=== PATIENT | male | born 1975 | race Caucasian/White ===

== ENCOUNTER 2020-11-04 18:40 | Inpatient (IN) | payer MEDICAID ==
[2020-11-04 19:37] LABS: Basophils % (A) 0 %; Eosinophils # (A) 0.4 k/uL (0-0.7); Eosinophils % (A) 3 %; HGB 14.4 gm/dL (13.0-17.5); Lymphocytes # (A) 1.8 k/uL (1.0-4.8); Lymphocytes % (A) 14 %; MCH 32.5 pg (25.0-35.0); MCHC 35.2 g/dL (31.0-37.0); MCV 92.3 fL (80.0-100.0); Mean Platelet Volume 7.2; Monocytes # (A) 0.7 k/uL (0-1.0); Monocytes % (A) 5 %; Neutrophils # (A) 9.6 k/uL (1.3-7.7); Neutrophils % (A) 76 %; Platelet Count 241 k/uL (150-450); RBC 4.44 m/uL (4.30-5.90); WBC 12.7 k/uL (3.8-10.6)
[2020-11-04 19:48] LABS: ALT 21 U/L (4-49); AST 25 U/L (17-59); African American GFR (CKD) >90 (>60 ml/min/1.73 sqM); Albumin 3.7 g/dL (3.5-5.0); Alkaline Phosphatase 57 U/L (38-126); Anion Gap 7 mmol/L; Blood Urea Nitrogen 27 mg/dL (9-20); Calcium 9.2 mg/dL (8.4-10.2); Carbon Dioxide 25 mmol/L (22-30); Chloride 104 mmol/L (98-107); Glucose 104 mg/dL (74-99); Non-African American GFR(CKD) >90 (>60 ml/min/1.73 sqM); Potassium 4.2 mmol/L (3.5-5.1); Sodium 136 mmol/L (137-145); Total Protein 5.8 g/dL (6.3-8.2)
[2020-11-04 19:49] LABS: Partial Thromboplastin Time 23.6 sec (22.0-30.0); Prothrombin Time 10.4 sec (9.0-12.0)
[2020-11-04] MEDS ORDERED: IOPAMIDOL CONTRAST (ORAL USE) VIAL PO PRN (19:51)
--- NOTE | 2020-11-04 19:51 | ED ---
GI Bleed HPI - General Chief complaint: GI Bleed Stated complaint: GI bleed Time Seen by Provider: 11/04/20 18:56 Source: patient Mode of arrival: ambulatory Limitations: no limitations - History of Present Illness Initial comments: Fausto is a 45-year-old male who presents to the emergency department today via private vehicle for evaluation of possible GI bleeding. Patient reports that he was feeling more fatigued today than usual. He had 2 bowel movements this evening that appeared to be dark red in color. Patient has no history of GI bleeding. 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 He is on daily aspirin. - Related Data Home Medications Medication Instructions Recorded Confirmed Aspirin EC [Ecotrin Low Dose] 81 mg PO DAILY 11/04/20 11/04/20 Centrum 1 tab PO DAILY 11/04/20 11/04/20 Cholecalciferol [Vitamin D3 (25 25 mcg PO DAILY 11/04/20 11/04/20 Mcg = 1000 Iu)] Allergies Allergy/AdvReac Type Severity Reaction Status Date / Time No Known Allergies Allergy Verified 11/04/20 20:49 Review of Systems ROS Statement: Those systems with pertinent positive or pertinent negative responses have been documented in the HPI. ROS Other: All systems not noted in ROS Statement are negative. Past Medical History Additional Past Medical History / Comment(s): collapsed lung History of Any Multi-Drug Resistant Organisms: None Reported Past Surgical History: No Surgical Hx Reported, Orthopedic Surgery Additional Past Surgical History / Comment(s): Bilateral arthroscopies. Past Psychological History: No Psychological Hx Reported Smoking Status: Former smoker Past Alcohol Use History: Occasional Past Drug Use History: Marijuana General Exam - General Exam Comments Initial Comments: Physical Exam GENERAL: Patient is well-developed and well-nourished. Patient is nontoxic and well-hydrated and is in no distress. HENT: Normocephalic, Atraumatic. EYES: PERRL, EOMI No conjunctival pallor PULMONARY: Unlabored respirations. CARDIOVASCULAR: RRR Warm and well perfused extremities ABDOMEN: Non-distended SKIN: No rashes or bruising No pallor : Deferred NEUROLOGIC: Alert and oriented Normal speech MUSCULOSKELETAL: Moving all extremities with no apparent injury PSYCHIATRIC: No SI/HI Limitations: no limitations Course Vital Signs 11/04/20 18:48 Temperature 97.9 F Pulse Rate 81 Respiratory 18 Rate Blood Pressure 151/77 O2 Sat by Pulse 100 Oximetry Medical Decision Making - Medical Decision Making The patient was seen and evaluated, history is obtained from the patient and at bedside who is an RN Patient with a history of gastric bypass no GI bleeding in the past pertaining today after to melanotic stools at home Patient hemodynamically stable labs are obtained, hemoglobin is 14.4 however patient did have melanotic stool while in the emergency department Protonix was ordered for presumed upper GI bleeding Computed tomography scan no acute findings radiologist did comment on fluid in the rectum consistent with blood however the social right prior to the patient's episode of melena Patient care was discussed with Dr. santos of the [facility] [place] [facility] who accepts the admission with consult to GI - Lab Data Result diagrams: 11/04/20 19:13 11/04/20 19:13 Lab Results 11/04/20 11/04/20 11/04/20 Range/Units 19:13 19:13 19:13 WBC 12.7 H (3.8-10.6) k/uL RBC 4.44 (4.30-5.90) m/uL Hgb 14.4 (13.0-17.5) gm/dL Hct 41.0 (39.0-53.0) % MCV 92.3 (80.0-100.0) fL MCH 32.5 (25.0-35.0) pg MCHC 35.2 (31.0-37.0) g/dL RDW 12.0 (11.5-15.5) % Plt Count 241 (150-450) k/uL MPV 7.2 Neutrophils % 76 % Lymphocytes % 14 % Monocytes % 5 % Eosinophils % 3 % Basophils % 0 % Neutrophils # 9.6 H (1.3-7.7) k/uL Lymphocytes # 1.8 (1.0-4.8) k/uL Monocytes # 0.7 (0-1.0) k/uL Eosinophils # 0.4 (0-0.7) k/uL Basophils # 0.0 (0-0.2) k/uL PT 10.4 (9.0-12.0) sec INR 1.0 (<1.2) APTT 23.6 (22.0-30.0) sec Sodium 136 L (137-145) mmol/L Potassium 4.2 (3.5-5.1) mmol/L Chloride 104 (98-107) mmol/L Carbon Dioxide 25 (22-30) mmol/L Anion Gap 7 mmol/L BUN 27 H (9-20) mg/dL Creatinine 0.77 (0.66-1.25) mg/dL Est GFR (CKD-EPI)AfAm >90 (>60 ml/min/1.73 sqM) Est GFR (CKD-EPI)NonAf >90 (>60 ml/min/1.73 sqM) Glucose 104 H (74-99) mg/dL Calcium 9.2 (8.4-10.2) mg/dL Total Bilirubin 1.0 (0.2-1.3) mg/dL AST 25 (17-59) U/L ALT 21 (4-49) U/L Alkaline Phosphatase 57 (38-126) U/L Total Protein 5.8 L (6.3-8.2) g/dL Albumin 3.7 (3.5-5.0) g/dL Disposition Clinical Impression: Melena Disposition: ADMITTED IP TO THIS HOSP Condition: Stable Is patient prescribed a controlled substance at d/c from ED?: No
[2020-11-04] MEDS ORDERED: PANTOPRAZOLE 40 MG/10 ML VIAL IVP STA (20:37)
[2020-11-04] MEDS ORDERED: SODIUM CHLORIDE 0.9% 1,000 ML IV STA (20:37)
[2020-11-04] MEDS ORDERED: ONDANSETRON 4 MG/2 ML VIAL IVP STA (20:37)
[2020-11-04] MEDS ORDERED: ONDANSETRON 4 MG/2 ML VIAL IVP PRN (20:38)
[2020-11-04] MEDS ORDERED: NALOXONE 0.4 MG/ML 1 ML VIAL IV PRN (20:38)
--- NOTE | 2020-11-04 21:01 | CT ---
EXAMINATION TYPE: CT abdomen pelvis w con DATE OF EXAM: 11/04/2020 COMPARISON: None available. HISTORY: blood in stool CT DLP: 1085.4 mGycm Automated exposure control for dose reduction was used. TECHNIQUE: Helical acquisition of images was performed from the lung bases through the pelvis. CONTRAST: Performed with Oral Contrast and with IV Contrast, patient injected with 100 mL of Isovue 300. FINDINGS: LUNG BASES: No significant abnormality is appreciated. LIVER/GB: No significant abnormality is appreciated. PANCREAS: No significant abnormality is seen. SPLEEN: No significant abnormality is seen. ADRENALS: No significant abnormality is seen. KIDNEYS: No significant abnormality is seen. FREE AIR: No free air is visualized. RETROPERITONEAL ADENOPATHY: None visualized REPRODUCTIVE ORGANS: No significant abnormality is seen URINARY BLADDER: No significant abnormality is seen. PELVIC ADENOPATHY: None visualized. OSSEOUS STRUCTURES: No significant abnormality is seen. BOWEL: Gastric bypass. Mildly hyperattenuating material within the rectum. No bowel obstruction, shelby e air or fluid mildly enlarged. OTHER: None. IMPRESSION: MILDLY HYPERATTENUATING MATERIAL WITHIN THE RECTUM, MOST COMPATIBLE WITH PROVIDED HISTORY OF RECENTLY PASSED MELENA. FINDINGS WERE DISCUSSED WITH DR. POON AND PATIENT IS REPORTED TO BE CLINICALLY STA BLE AND SYMPTOMS APPEARS TO RELATE TO UPPER GI BLEED. ACTIVE BLEEDING IS FELT TO BE LESS LIKELY.
[2020-11-04 22:57] LABS: Basophils % (A) 0 %; Eosinophils # (A) 0.1 k/uL (0-0.7); Eosinophils % (A) 1 %; HCT 34.6 % (39.0-53.0); HGB 12.4 gm/dL (13.0-17.5); Lymphocytes # (A) 1.3 k/uL (1.0-4.8); Lymphocytes % (A) 13 %; MCH 33.1 pg (25.0-35.0); MCHC 35.9 g/dL (31.0-37.0); MCV 92.4 fL (80.0-100.0); Mean Platelet Volume 6.8; Monocytes # (A) 0.5 k/uL (0-1.0); Monocytes % (A) 5 %; Neutrophils # (A) 7.9 k/uL (1.3-7.7); Neutrophils % (A) 80 %; Platelet Count 225 k/uL (150-450); RBC 3.74 m/uL (4.30-5.90); RDW 12.2 % (11.5-15.5); WBC 9.9 k/uL (3.8-10.6)
--- NOTE | 2020-11-04 23:20 | P.HPIM ---
History of Present Illness H&P Date: 11/04/20 The patient is a 45-year-old male with a PMH of Divya-en-Y gastric bypass (4 years ago) who presented to the emergency room for bloody stools. Patient reports that over the past 1-2 days he has felt slightly nauseous and under the weather which he initially attributed to lack of sleep and eating poorly. He notes that earlier today at home he had a loose black tarry stools. He did not think much of it until he had another loose grossly bloody bowel movement just prior to presentation. He reports that while he was passing the bowel movement, he felt nauseous and lightheaded which subsequently resolved shortly after. He had another grossly bloody bowel movement in the emergency room. He reports no prior history of GI bleeding. Reports taking [id number] baby aspirin daily on recommendation of his PCP for primary prevention. He denied abdominal pain, fever, chills, chest pain, shortness of breath, or cough. In the emergency room a CT abdomen and pelvis was remarkable for hyperattenuating material within the rectum compatible with blood suspected to be from upper GI bleeding, believed less likely to be active bleeding. evaluation revealed hemoglobin of 14.4 and subsequently 12.4. Review of Systems Pertinent positives and negatives as discussed in HPI, a complete review of systems was performed and all other systems are negative. Past Medical History Additional Past Medical History / Comment(s): collapsed lung History of Any Multi-Drug Resistant Organisms: None Reported Past Surgical History: No Surgical Hx Reported, Orthopedic Surgery Additional Past Surgical History / Comment(s): Bilateral arthroscopies. Past Psychological History: No Psychological Hx Reported Smoking Status: Former smoker Past Alcohol Use History: Occasional Past Drug Use History: Marijuana Medications and Allergies Home Medications Medication Instructions Recorded Confirmed Type Aspirin EC [Ecotrin Low Dose] 81 mg PO DAILY 11/04/20 11/04/20 History Centrum 1 tab PO DAILY 11/04/20 11/04/20 History Cholecalciferol [Vitamin D3 (25 25 mcg PO DAILY 11/04/20 11/04/20 History Mcg = 1000 Iu)] Allergies Allergy/AdvReac Type Severity Reaction Status Date / Time No Known Allergies Allergy Verified 11/04/20 20:49 Physical Exam Vitals: Vital Signs Temp Pulse Resp BP Pulse Ox 11/04/20 22:00 84 20 135/78 99 11/04/20 18:48 97.9 F 81 18 151/77 100 Intake and Output 11/04/20 11/04/20 11/05/20 14:59 22:59 06:59 Other: Weight 87.543 kg General: non toxic, no distress, appears at stated age, overweight Derm: no unusual rashes/lesions no unusual ecchymoses, warm, dry Head: atraumatic, normocephalic, symmetric Eyes: EOMI, no lid lag, anicteric sclera, pupils equal round reactive to light ENT: Nose and ears atraumatic, no thrush, no pharyngeal erythema Neck: No thyromegaly, no cervical lymphadenopathy, trachea midline, supple Mouth: no lip lesion, mucus membranes moist Cardiovascular: S1S2 reg, no murmur, positive posterior tibial pulse bilateral, no edema, capillary refill less than 2 seconds Lungs: CTA bilateral, no rhonchi, no rales , no accessory muscle use Abdominal: soft, nontender to palpation, no guarding, no appreciable organomegaly, normal bowel sounds Ext: no gross muscle atrophy, muscle strength 5 out of 5 in all 4 extremities grossly, no contractures, Neuro: CN II-XI grossly intact, light touch intact all 4 extremities, finger to nose within normal limits, Psych: Alert, oriented, appropriate affect Results CBC & Chem 7: 11/04/20 22:40 11/04/20 19:13 Labs: Abnormal Lab Results - Last 24 Hours (Table) 11/04/20 11/04/20 11/04/20 Range/Units 19:13 19:13 22:40 WBC 12.7 H (3.8-10.6) k/uL RBC 3.74 L (4.30-5.90) m/uL Hgb 12.4 L (13.0-17.5) gm/dL Hct 34.6 L (39.0-53.0) % Neutrophils # 9.6 H 7.9 H (1.3-7.7) k/uL Sodium 136 L (137-145) mmol/L BUN 27 H (9-20) mg/dL Glucose 104 H (74-99) mg/dL Total Protein 5.8 L (6.3-8.2) g/dL Assessment and Plan Plan: Acute blood loss anemia suspected secondary to upper GI bleeding with history of Divya-en-Y bypass -Continue to monitor CBC every 8 hourly -GI consult -IV fluids -Protonix -Antiemetics -Nothing by mouth -Patient advised to discontinue his aspirin use and discussed with his PCP following discharge Elevated BUN -Likely secondary to GI bleeding -Continue to monitor DVT prophylaxis -IPCDs The patient is admitted with an anticipated less than 2 midnight stay for evaluation of GIB CODE STATUS: Full Code Discussed with: patient Anticipated discharge date: in am Anticipated discharge place: home A total of 35 minutes was spent on the care of this complex patient more than 50% of the time was spent in counseling and care coordination.
[2020-11-05 04:23] LABS: Glucose,Whole Blood 104 mg/dL (75-99)
--- NOTE | 2020-11-05 07:26 | XR ---
EXAMINATION TYPE: XR chest 1V DATE OF EXAM: 11/05/2020 COMPARISON: NONE HISTORY: Chest pain TECHNIQUE: Single frontal view of the chest is obtained. FINDINGS: There is no focal air space opacity, pleural effusion, or pneumothorax seen. The cardiac silhouette size is within normal limits. The osseous structures are intact. IMPRESSION: 1. No acute process.
--- NOTE | 2020-11-05 07:31 | P.CNPUL ---
History of Present Illness Consult date: 11/05/20 Chief complaint: GIB History of present illness: Very pleasant 45-year-old male patient was coming in for a GI bleeding. He is healthy. He has undergone a gastric Divya-en-Y bypass surgery in [place] 2013 and he was doing well since then and he has lost more than 150 pounds. The patient does not any peptic ulcer disease. No gastric ulcer. No history of any alcoholism. No history of any liver disease. No intake of any nonsteroidal anti-inflammatory medications. No previous history of GI bleed. Yesterday, he started up by having a single episode of melanotic stool and following that he has had 3 bouts of hematochezia the last 2 bouts occurred in the emergency department. I was told that the amount of blood was massive and the patient was becoming pale and diaphoretic and dizzy and lightheaded. At that point, the patient was resuscitated with IV fluids and he was given also unit of packed RBC for a hemoglobin of 12.4 and his hemoglobin dropped from 14.4. coagulation profile was normal. Platelet count was normal. He was not taking any form of anticoagulants. No hematemesis. No abdominal pain. Chest x-ray was normal. CAT scan of the abdomen was normal. He is currently in the intensive care unit. He is hemodynamically stable. No significant tachycardia. He is receiving normal saline at the rate of 75 mL's an hour. He is also nothing by mouth for now to which she is not happy. Review of Systems Constitutional: Reports fatigue, Reports weakness, Reports weight loss Eyes: denies as per HPI, denies blurred vision, denies bulging eye, denies decreased vision, denies diplopia, denies discharge, denies dry eye, denies irritation, denies itching, denies pain, denies photophobia, denies loss of peripheral vision, denies loss of vision, denies tunnel vision/blind spots Ears: deny: decreased hearing, ear discharge, earache, tinnitus Ears, nose, mouth and throat: Reports as per HPI Breasts: absent: as per HPI, gynecomastia Cardiovascular: Reports as per HPI Respiratory: Reports as per HPI Gastrointestinal: Reports as per HPI, Reports hematochezia, Reports melena Genitourinary: Reports as per HPI Musculoskeletal: Reports as per HPI Musculoskeletal: absent: ankle pain, ankle stiffness, ankle swelling, as per HPI, elbow pain, elbow stiffness, elbow swelling, foot pain, foot stiffness, foot swelling, hand pain, hand stiffness, hand swelling, hip pain, hip stiffness, hip swelling, knee pain, knee stiffness, knee swelling, shoulder pain, shoulder stiffness, shoulder swelling, wrist pain, wrist stiffness, wrist swelling Integumentary: Reports as per HPI Neurological: Reports as per HPI Psychiatric: Reports as per HPI Endocrine: Reports as per HPI Hematologic/Lymphatic: Reports as per HPI Allergic/Immunologic: Reports as per HPI Past Medical History Past Medical History: Osteoarthritis (OA) Additional Past Medical History / Comment(s): collapsed (L) lung History of Any Multi-Drug Resistant Organisms: None Reported Past Surgical History: Orthopedic Surgery Additional Past Surgical History / Comment(s): Bilateral Knee arthroscopies x3. Lasix eye surgery (2013), Divya-en-Y gastric bypass 06/25/2016 Past Anesthesia/Blood Transfusion Reactions: No Reported Reaction Past Psychological History: No Psychological Hx Reported Smoking Status: Former smoker Past Alcohol Use History: Occasional Past Drug Use History: Marijuana - Past Family History Mother Family Medical History: Hypertension, Thyroid Disorder Father Family Medical History: Myocardial Infarction ([place]) Additional Family Medical History / Comment(s): CABG x 4 Medications and Allergies Home Medications Medication Instructions Recorded Confirmed Type Aspirin EC [Ecotrin Low Dose] 81 mg PO DAILY 11/04/20 11/04/20 History Centrum 1 tab PO DAILY 11/04/20 11/04/20 History Cholecalciferol [Vitamin D3 (25 25 mcg PO DAILY 11/04/20 11/04/20 History Mcg = 1000 Iu)] Allergies Allergy/AdvReac Type Severity Reaction Status Date / Time No Known Allergies Allergy Verified 11/04/20 20:49 Physical Exam Vitals: Vital Signs Temp Pulse Resp BP Pulse Ox 11/05/20 07:00 75 17 125/77 98 11/05/20 06:30 69 11 L 126/80 97 11/05/20 06:03 98.1 F 75 12 126/80 98 11/05/20 06:00 75 18 126/82 99 11/05/20 05:53 98.2 F 76 12 126/82 98 11/05/20 05:30 72 11 L 124/82 98 11/05/20 05:00 69 10 L 123/82 99 11/05/20 04:52 98 11/05/20 04:50 71 17 123/82 98 11/05/20 04:30 98.1 F 77 13 126/79 99 11/05/20 03:32 98.1 F 11/05/20 03:30 58 L 16 113/68 100 11/05/20 03:29 65 22 130/79 91 L 11/04/20 22:00 84 20 135/78 99 11/04/20 18:48 97.9 F 81 18 151/77 100 Intake and Output 11/04/20 11/05/20 11/05/20 22:59 06:59 14:59 Intake Total 434 359 Balance 434 359 Intake: IV 150 359 0.9 NaCl- 150 75 PRBC's 284 Blood Product 284 Rc Pheresis 2 As3 Unit 284 [id number] Other: Weight 87.543 kg 90.3 kg The patient appeared well nourished and normally developed. Vital signs as doc umented. Head exam is unremarkable. No scleral icterus or corneal arcus noted. Neck is without jugular venous distension, thyromegaly, or carotid bruits. Carotid upstrokes are brisk bilaterally. Lungs are clear to auscultation and percussion. Cardiac exam reveals the PMI to be normally sized and situated. Rhythm is regular. First and second heart sounds normal. No murmurs, rubs or gallops. Abdominal exam reveals normal bowel sounds, no masses, no organomegaly and no aortic enlargement. Extremities are nonedematous and both femoral and pedal pulses are normal.Examination of the skin revealed no evidence of significant rashes, suspicious appearing nevi or other concerning lesions.Neurologically, the patient is awake and alert and the patient does not have any focal neurological deficit. Cranial nerves are essentially intact. Results - Laboratory Findings CBC and BMP: 11/04/20 22:40 11/04/20 19:13 PT/INR, D-dimer PT 10.4 sec (9.0-12.0) 11/04/20 19:13 INR 1.0 (<1.2) 11/04/20 19:13 Abnormal lab findings: Abnormal Labs 11/04/20 11/04/20 11/04/20 19:13 19:13 22:40 WBC 12.7 H RBC 3.74 L Hgb 12.4 L Hct 34.6 L Neutrophils # 9.6 H 7.9 H Sodium 136 L BUN 27 H Glucose 104 H POC Glucose (mg/dL) Total Protein 5.8 L Crossmatch 11/05/20 11/05/20 03:56 04:22 WBC RBC Hgb Hct Neutrophils # Sodium BUN Glucose POC Glucose (mg/dL) 104 H Total Protein Crossmatch See Detail - Diagnostic Findings Chest x-ray: image reviewed Assessment and Plan Plan: 1 acute GI bleeding likely of an upper GI source and the patient was undergone a Divya-en-Y gastric bypass surgery. The patient had significant amount of bleeding clinically. Hemoglobin dropped down to 12.4. He has already given a unit of packed RBC and is was resuscitated IV fluids. Hemodynamically stable at this point. He is nothing by mouth. He is on IV Protonix. 2 history of bariatric surgery with Divya-en-Y gastric bypass, current BMI is 27 Plan Continue IV Protonix Continue IV fluids Watch for any further signs of GI bleeding Keep the patient by mouth for now The patient for EGD and possible colonoscopy Monitor hemoglobin every 6 hours We'll continue to follow.
[2020-11-05 08:37] LABS: Basophils % (A) 0 %; Eosinophils # (A) 0.1 k/uL (0-0.7); Eosinophils % (A) 1 %; HCT 34.3 % (39.0-53.0); HGB 11.6 gm/dL (13.0-17.5); Lymphocytes # (A) 1.9 k/uL (1.0-4.8); Lymphocytes % (A) 22 %; MCH 31.5 pg (25.0-35.0); MCV 92.6 fL (80.0-100.0); Mean Platelet Volume 6.6; Monocytes # (A) 0.5 k/uL (0-1.0); Monocytes % (A) 6 %; Neutrophils # (A) 5.9 k/uL (1.3-7.7); Neutrophils % (A) 69 %; Platelet Count 216 k/uL (150-450); RDW 12.7 % (11.5-15.5); WBC 8.5 k/uL (3.8-10.6)
[2020-11-05 08:56] LABS: Basophils # (A) 0.04 X 10*3/uL (0.00-0.10); Basophils % (A) 0.5 %; Eosinophils # (A) 0.12 X 10*3/uL (0.04-0.35); Eosinophils % (A) 1.5 %; HCT 30.7 % (39.6-50.0); HGB 10.4 g/dL (13.0-17.0); Lymphocytes # (A) 1.55 X 10*3/uL (0.90-5.00); Lymphocytes % (A) 19.2 %; MCH 31.8 pg (27.0-32.0); MCHC 33.9 g/dL (32.0-37.0); MCV 93.9 fL (80.0-97.0); Monocytes # (A) 0.75 X 10*3/uL (0.20-1.00); Monocytes % (A) 9.3 %; Neutrophils % (A) 69.3 %; Platelet Count 197 X 10*3/uL (140-440); RBC 3.27 X 10*6/uL (4.40-5.60); RDW 12.1 % (11.5-14.5); WBC 8.08 X 10*3/uL (4.50-10.00)
[2020-11-05] MEDS ORDERED: PANTOPRAZOLE 40 MG/10 ML VIAL IV SCH (09:00)
[2020-11-05 09:17] LABS: African American GFR (CKD) 123.3 (60.0-200.0); Albumin/Globulin Ratio 2.5 (1.60-3.17); Anion Gap 4.6 mmol/L (4.00-12.00); BUN/Creat Ratio 26.25 Ratio (12.00-20.00); Calcium 8.3 mg/dL (8.7-10.3); Carbon Dioxide 25.4 mmol/L (21.6-31.8); Globulin 1.2 g/dL (1.6-3.3); Non-African American GFR(CKD) 106.4 (60.0-200.0); Potassium 3.8 mmol/L (3.5-5.5); Total Bilirubin 0.8 mg/dL (0.2-1.2); Total Protein 4.2 g/dL (6.2-8.2)
[2020-11-05 09:44] LABS: Appearance,Urine Clear (Clear); Bilirubin,Urine Negative (Negative); Blood,Urine Negative (Negative); Color,Urine Yellow; Glucose,Urine (UA) Negative (Negative); Ketones,Urine 3+ (Negative); Leukocyte Esterase,Urine Negative (Negative); Nitrite,Urine Negative (Negative); Protein,Urine Negative (Negative); Specific Gravity,Urine 1.026 (1.001-1.035); Urobilinogen,Urine <2.0 mg/dL (<2.0)
--- NOTE | 2020-11-05 10:29 | P.PN ---
Subjective Progress Note Date: 11/05/20 Patient is awake and alert. He had another episode of GI bleed this morning with another maroon bowel movement. He received 1 units of packed RBC for hemoglobin of 10.4 as ordered by GI. Patient denies any abdominal pain. He is hemodynamically stable. No nausea or vomiting. Patient denies any heavy alcohol use and reports drinking 1 drink per day. Patient denies any NSAIDs use and he is aware that he is not supposed to use it secondary to his Divya-en-Y surgery. Objective - Vital Signs Vital signs: Vital Signs Temp 97.9 F 11/05/20 08:00 Pulse 88 11/05/20 10:00 Resp 15 11/05/20 10:00 BP 124/91 11/05/20 10:00 Pulse Ox 100 11/05/20 10:00 Intake & Output 11/04/20 11/05/20 11/05/20 18:59 06:59 18:59 Intake Total 434 584 Output Total 500 Balance 434 84 Weight 87.543 kg 90.3 kg Intake: IV 150 584 0.9 NaCl- 150 300 PRBC's 284 Blood Product 284 Rc Pheresis 2 As3 Unit 284 [id number] Output: Urine 500 - Exam General: The patient is awake and alert, in no distress Eye: there is normal conjunctiva bilaterally. Neck: The neck is supple, there is no JVD. Cardiovascular: Normal S1-S2, no S3-S4, no murmurs. Respiratory: Lungs clear to auscultation bilaterally Gastrointestinal: Abdomen is soft, nontender Musculoskeletal: There is no pedal edema. Neurological:. Speech is normal. Skin: Skin is warm and dry - Labs CBC & Chem 7: 11/05/20 08:08 11/05/20 05:23 Labs: Abnormal Lab Results - Last 24 Hours (Table) 11/04/20 11/04/20 11/04/20 Range/Units 19:13 19:13 22:40 WBC 12.7 H (3.8-10.6) k/uL RBC 3.74 L (4.30-5.90) m/uL Hgb 12.4 L (13.0-17.5) gm/dL Hct 34.6 L (39.0-53.0) % Neutrophils # 9.6 H 7.9 H (1.3-7.7) k/uL Sodium 136 L (137-145) mmol/L BUN 27 H (9-20) mg/dL BUN/Creatinine Ratio (12.00-20.00) Ratio Glucose 104 H (74-99) mg/dL POC Glucose (mg/dL) (75-99) mg/dL Calcium (8.7-10.3) mg/dL Total Protein 5.8 L (6.3-8.2) g/dL Albumin (3.80-4.90) g/dL Globulin (1.6-3.3) g/dL Urine Ketones (Negative) Crossmatch 11/05/20 11/05/20 11/05/20 Range/Units 03:56 04:22 05:23 WBC (3.8-10.6) k/uL RBC 3.27 L (4.30-5.90) m/uL Hgb 10.4 L (13.0-17.5) gm/dL Hct 30.7 L (39.0-53.0) % Neutrophils # (1.3-7.7) k/uL Sodium (137-145) mmol/L BUN (9-20) mg/dL BUN/Creatinine Ratio (12.00-20.00) Ratio Glucose (74-99) mg/dL POC Glucose (mg/dL) 104 H (75-99) mg/dL Calcium (8.7-10.3) mg/dL Total Protein (6.3-8.2) g/dL Albumin (3.80-4.90) g/dL Globulin (1.6-3.3) g/dL Urine Ketones (Negative) Crossmatch See Detail 11/05/20 11/05/20 11/05/20 Range/Units 05:23 08:08 09:21 WBC (3.8-10.6) k/uL RBC 3.70 L (4.30-5.90) m/uL Hgb 11.6 L (13.0-17.5) gm/dL Hct 34.3 L (39.0-53.0) % Neutrophils # (1.3-7.7) k/uL Sodium (137-145) mmol/L BUN (9-20) mg/dL BUN/Creatinine Ratio 26.25 H (12.00-20.00) Ratio Glucose (74-99) mg/dL POC Glucose (mg/dL) (75-99) mg/dL Calcium 8.3 L (8.7-10.3) mg/dL Total Protein 4.2 L (6.3-8.2) g/dL Albumin 3.00 L (3.80-4.90) g/dL Globulin 1.2 L (1.6-3.3) g/dL Urine Ketones 3+ H (Negative) Crossmatch Assessment and Plan Assessment: This is a 45-year-old male with no significant past medical history other than a Divya-en-Y bypass surgery done in [facility] in 2013 that presented to the emergency room with rectal bleed and maroon bowel movement. Patient was evaluated in the ER and currently admitted to the hospital for further management of his medical problems noted below. 1. GI bleed, most likely upper. Computed tomography scan of the abdomen and pelvis showed no acute findings. Started on IV Protonix 40 mg daily which I would increase to twice a day. GI consulted for further management and possible EGD. 2. Acute blood loss anemia, status post 1 unit of PRBC transfusion for hemoglobin of 10.4 as ordered by GI. Patient is hemodynamically stable. We will continue to monitor CBC closely. Patient is hemodynamically stable. 3. History of Divya-en-Y bypass surgery in [facility] in 2013 4. DVT prophylaxis with SCDs Today, I reviewed his medication list and lab work results. Continue IV fluid hydration with normal saline at 75 mL per hour. Continue nothing by mouth for now. Transfuse as needed for hemoglobin less than 8.
[2020-11-05] MEDS: PANTOPRAZOLE 40 MG/10 ML VIAL IV SCH ×2 (11:06→20:30)
--- NOTE | 2020-11-05 11:44 | P.CONS ---
History of Present Illness - Reason for Consult Consult date: 11/05/20 GI bleed Requesting physician: Dian Rodriguez - Chief Complaint GI bleed - History of Present Illness 45-year-old pleasant male with a previous history of Divya-en-Y gastric bypass presenting to the hospital for evaluation of GI bleed. The patient previously had a Divya-en-Y gastric bypass in 2016. He presented to the hospital after having an episode of dark melanotic stool. The patient had associated dizziness and lightheadedness. He presented to the emergency department for further evaluation where he was found to have 2 bowel movements described as bright red blood in color. He denies any abdominal pain. No history of peptic ulcer disease, NSAID use, chronic liver disease or excessive alcohol use. No prior EGD or colonoscopy. Computed tomography scan of the abdomen was performed in evaluation and essentially negative except for some finding of material felt to be old blood in the rectum. Laboratory evaluation significant for WBC 8.5, hemoglobin 11.6 after transfusion 1 unit of PRBCs, platelet count 216,000, total bilirubin 0.8, alkaline phosphatase 46, AST 15 and ALT 17 with a BUN of 27. Currently the patient is receiving treatment in the intensive care. It. No other acute complaints at this time. Review of Systems REVIEW OF SYSTEMS: CONSTITUTIONAL: Denies any fevers, chills, weight change or fatigue, he did have some lightheadedness and dizziness earlier. CARDIOVASCULAR: Denies any chest pain, palpitations high or low blood pressures RESPIRATORY: Denies any shortness of breath, hemoptysis or cough. GENITOURINARY: No dysuria or hematuria. MUSCULOSKELETAL: No weakness reported. SKIN: Denies any new rashes or lesions, jaundice or pallor. PSYCHIATRIC: Denies any depression or anxiety. NEUROLOGY: Denies headache, denies any new focal deficits. EARS/NOSE/THROAT: No recent hearing change, congestion, nasal discharge or sore throat. EYES: No pain in eyes, discharge or change in vision. GASTROINTESTINAL: As per HPI. Past Medical History Past Medical History: Osteoarthritis (OA) Additional Past Medical History / Comment(s): collapsed (L) lung History of Any Multi-Drug Resistant Organisms: None Reported Past Surgical History: Orthopedic Surgery Additional Past Surgical History / Comment(s): Bilateral Knee arthroscopies x3. Lasix eye surgery (2013), Divya-en-Y gastric bypass 06/25/2016 Past Anesthesia/Blood Transfusion Reactions: No Reported Reaction Past Psychological History: No Psychological Hx Reported Smoking Status: Former smoker Past Alcohol Use History: Occasional Past Drug Use History: Marijuana - Past Family History Mother Family Medical History: Hypertension, Thyroid Disorder Father Family Medical History: Myocardial Infarction (MS) Additional Family Medical History / Comment(s): CABG x 4 Medications and Allergies Home Medications Medication Instructions Recorded Confirmed Type Aspirin EC [Ecotrin Low Dose] 81 mg PO DAILY 11/04/20 11/04/20 History Centrum 1 tab PO DAILY 11/04/20 11/04/20 History Cholecalciferol [Vitamin D3 (25 25 mcg PO DAILY 11/04/20 11/04/20 History Mcg = 1000 Iu)] Allergies Allergy/AdvReac Type Severity Reaction Status Date / Time No Known Allergies Allergy Verified 11/04/20 20:49 Physical Exam Vitals: Vital Signs Temp Pulse Resp BP Pulse Ox 11/05/20 10:00 88 15 124/91 100 11/05/20 09:30 87 26 H 137/85 99 11/05/20 09:00 111 H 28 H 136/86 98 11/05/20 08:30 69 20 135/74 98 11/05/20 08:00 97.9 F 75 11 L 128/75 98 11/05/20 07:30 71 16 119/68 98 11/05/20 07:00 75 17 125/77 98 11/05/20 06:50 97.9 F 75 17 125/77 11/05/20 06:30 69 11 L 126/80 97 11/05/20 06:03 98.1 F 75 12 126/80 98 11/05/20 06:00 75 18 126/82 99 11/05/20 05:53 98.2 F 76 12 126/82 98 11/05/20 05:30 72 11 L 124/82 98 11/05/20 05:00 69 10 L 123/82 99 11/05/20 04:52 98 11/05/20 04:50 71 17 123/82 98 11/05/20 04:30 98.1 F 77 13 126/79 99 11/05/20 03:32 98.1 F 11/05/20 03:30 58 L 16 113/68 100 11/05/20 03:29 65 22 130/79 91 L 03/27/21 22:00 84 20 135/78 99 11/04/20 18:48 97.9 F 81 18 151/77 100 Intake and Output 11/04/20 11/05/20 11/05/20 22:59 06:59 14:59 Intake Total 434 584 Output Total 500 Balance 434 84 Intake: IV 150 584 0.9 NaCl- 150 300 PRBC's 284 Blood Product 284 Rc Pheresis 2 As3 Unit 284 [id number] Output: Urine 500 Other: Weight 87.543 kg 90.3 kg On physical examination, patient appears comfortable in no apparent distress. HEAD: Normocephalic, atraumatic. EYES: No scleral icterus. No conjunctival injection. MOUTH: No lesions, tongue midline. NECK: Trachea midline, no gross abnormalities. CHEST: Clear to auscultation with no wheezing or rhonchi appreciated. HEART: Regular rate and rhythm. ABDOMEN: Soft, nontender. Bowel sounds are positive. No organomegaly. No guarding or rigidity. EXTREMITIES: No pedal edema. SKIN: No rashes, no jaundice. NEUROLOGIC: Alert and oriented x3. No focal deficits. Results CBC & Chem 7: 11/05/20 08:08 11/05/20 05:23 Labs: Abnormal Lab Results - Last 24 Hours (Table) 11/04/20 11/04/20 11/04/20 Range/Units 19:13 19:13 22:40 WBC 12.7 H (3.8-10.6) k/uL RBC 3.74 L (4.30-5.90) m/uL Hgb 12.4 L (13.0-17.5) gm/dL Hct 34.6 L (39.0-53.0) % Neutrophils # 9.6 H 7.9 H (1.3-7.7) k/uL Sodium 136 L (137-145) mmol/L BUN 27 H (9-20) mg/dL BUN/Creatinine Ratio (12.00-20.00) Ratio Glucose 104 H (74-99) mg/dL POC Glucose (mg/dL) (75-99) mg/dL Calcium (8.7-10.3) mg/dL Total Protein 5.8 L (6.3-8.2) g/dL Albumin (3.80-4.90) g/dL Globulin (1.6-3.3) g/dL Urine Ketones (Negative) Crossmatch 11/05/20 11/05/20 11/05/20 Range/Units 03:56 04:22 05:23 WBC (3.8-10.6) k/uL RBC 3.27 L (4.30-5.90) m/uL Hgb 10.4 L (13.0-17.5) gm/dL Hct 30.7 L (39.0-53.0) % Neutrophils # (1.3-7.7) k/uL Sodium (137-145) mmol/L BUN (9-20) mg/dL BUN/Creatinine Ratio (12.00-20.00) Ratio Glucose (74-99) mg/dL POC Glucose (mg/dL) 104 H (75-99) mg/dL Calcium (8.7-10.3) mg/dL Total Protein (6.3-8.2) g/dL Albumin (3.80-4.90) g/dL Globulin (1.6-3.3) g/dL Urine Ketones (Negative) Crossmatch See Detail 11/05/20 11/05/20 11/05/20 Range/Units 05:23 08:08 09:21 WBC (3.8-10.6) k/uL RBC 3.70 L (4.30-5.90) m/uL Hgb 11.6 L (13.0-17.5) gm/dL Hct 34.3 L (39.0-53.0) % Neutrophils # (1.3-7.7) k/uL Sodium (137-145) mmol/L BUN (9-20) mg/dL BUN/Creatinine Ratio 26.25 H (12.00-20.00) Ratio Glucose (74-99) mg/dL POC Glucose (mg/dL) (75-99) mg/dL Calcium 8.3 L (8.7-10.3) mg/dL Total Protein 4.2 L (6.3-8.2) g/dL Albumin 3.00 L (3.80-4.90) g/dL Globulin 1.2 L (1.6-3.3) g/dL Urine Ketones 3+ H (Negative) Crossmatch CT scan - abdomen: report reviewed (Computed tomography scan performed in evaluation of symptoms of GI bleed essentially negative except for some material in the rectum felt to be old blood.) Assessment and Plan (1) GI bleed Narrative/Plan: 45-year-old male with a prior medical history significant for a Divya-en-Y gastric bypass in 2016 who presented for melanotic stool. To further bowel movements in the emergency department and felt to be more bright red blood in color. Computed tomography scan of the abdomen essentially negative. No prior history of peptic ulcer disease, no prior EGD or colonoscopy. Patient denies any abdominal pain at this time. Unclear etiology, patient does have mild elevation in BUN of 27 may be related to upper GI bleed with differential including peptic ulcer disease, gastritis, esophagitis, however given the description of bright red blood in the emergency department cannot rule out lower GI bleed. Current Visit: Yes Status: Acute Code(s): K92.2 - GASTROINTESTINAL HEMORRHAGE, UNSPECIFIED SNOMED Code(s): 80896184 (2) Anemia associated with acute blood loss Current Visit: Yes Status: Acute Code(s): D62 - ACUTE POSTHEMORRHAGIC ANEMIA SNOMED Code(s): 999536265 (3) Melena Current Visit: Yes Status: Acute Code(s): K92.1 - MELENA SNOMED Code(s): 6394533 Plan: Supportive care Clear liquid diet Nothing by mouth after midnight Continue to monitor hemoglobin and hematocrit and transfuse as needed Continue Protonix therapy Bowel prep ordered Extensive discussion with the patient regarding possible risks, benefits and complications from EGD and colonoscopy with all of his questions answered to his satisfaction, we'll plan for EGD and colonoscopy tomorrow for further evaluation Thank you for allowing us to participate in the care of the patient we will continue to follow
[2020-11-05 16:12] LABS: HGB 11.4 gm/dL (13.0-17.5); MCH 33.9 pg (25.0-35.0); MCHC 36.7 g/dL (31.0-37.0); MCV 92.3 fL (80.0-100.0); Mean Platelet Volume 6.7; Platelet Count 214 k/uL (150-450); RBC 3.36 m/uL (4.30-5.90); RDW 12.3 % (11.5-15.5); WBC 8.9 k/uL (3.8-10.6)
[2020-11-05] MEDS ORDERED: PEG 3350-NA SULF,BICARB,CL/KCL 4,000 ML BOTTLE PO ONE (17:00)
[2020-11-05] MEDS ORDERED: bisacodyL 5 MG TABLET.DR PO ONE (18:00)
[2020-11-05 21:32] LABS: HCT 31.2 % (39.0-53.0); HGB 11.2 gm/dL (13.0-17.5); MCH 33.6 pg (25.0-35.0); MCV 93.4 fL (80.0-100.0); Mean Platelet Volume 6.8; Platelet Count 218 k/uL (150-450); RBC 3.34 m/uL (4.30-5.90); RDW 12.4 % (11.5-15.5); WBC 9.1 k/uL (3.8-10.6)
[2020-11-06 04:35] LABS: Basophils % (A) 1 %; Eosinophils # (A) 0.2 k/uL (0-0.7); Eosinophils % (A) 4 %; HCT 29.1 % (39.0-53.0); HGB 10.4 gm/dL (13.0-17.5); Lymphocytes # (A) 1.8 k/uL (1.0-4.8); Lymphocytes % (A) 29 %; MCH 33.2 pg (25.0-35.0); MCHC 35.9 g/dL (31.0-37.0); MCV 92.5 fL (80.0-100.0); Mean Platelet Volume 6.6; Monocytes # (A) 0.4 k/uL (0-1.0); Monocytes % (A) 6 %; Neutrophils # (A) 3.5 k/uL (1.3-7.7); Neutrophils % (A) 57 %; Platelet Count 185 k/uL (150-450); RBC 3.14 m/uL (4.30-5.90); RDW 12.3 % (11.5-15.5); WBC 6.2 k/uL (3.8-10.6)
[2020-11-06 05:31] LABS: African American GFR (CKD) >90 (>60 ml/min/1.73 sqM); Anion Gap 3 mmol/L; Blood Urea Nitrogen 7 mg/dL (9-20); Calcium 8.4 mg/dL (8.4-10.2); Carbon Dioxide 26 mmol/L (22-30); Chloride 106 mmol/L (98-107); Glucose 82 mg/dL (74-99); Non-African American GFR(CKD) >90 (>60 ml/min/1.73 sqM); Potassium 3.6 mmol/L (3.5-5.1); Sodium 135 mmol/L (137-145)
[2020-11-06] MEDS ORDERED: ACETAMINOPHEN TAB 500 MG TAB PO PRN (06:04)
--- NOTE | 2020-11-06 10:37 | P.PN ---
Subjective Progress Note Date: 11/06/20 Principal diagnosis: Acute GI bleeding likely upper GI source. Very pleasant 45-year-old male patient was coming in for a GI bleeding. He is healthy. He has undergone a gastric Divya-en-Y bypass surgery in [place] 2013 and he was doing well since then and he has lost more than 150 pounds. The patient does not any peptic ulcer disease. No gastric ulcer. No history of any al coholism. No history of any liver disease. No intake of any nonsteroidal anti- inflammatory medications. No previous history of GI bleed. Yesterday, he started up by having a single episode of melanotic stool and following that he has had 3 bouts of hematochezia the last 2 bouts occurred in the emergency department. I was told that the amount of blood was massive and the patient was becoming pale and diaphoretic and dizzy and lightheaded. At that point, the patient was resuscitated with IV fluids and he was given also unit of packed RBC for a hemoglobin of 12.4 and his hemoglobin dropped from 14.4. coagulation profile was normal. Platelet count was normal. He was not taking any form of anticoagulants. No hematemesis. No abdominal pain. Chest x-ray was normal. CAT scan of the abdomen was normal. He is currently in the intensive care unit. He is hemodynamically stable. No significant tachycardia. He is receiving normal saline at the rate of 75 mL's an hour. He is also nothing by mouth for now to which she is not happy. Patient was reevaluated today on 11/06/2020, remains in the ICU, scheduled to undergo EGD and colonoscopy today. Hemoglobin today is 10.4, it was 11.2 yesterday. Patient received 1 unit of packed RBCs since admission. No active bleeding overnight. Patient is hemodynamically stable. And in no distress, on room air. Objective - Vital Signs Vital signs: Vital Signs Temp 98.1 F 11/06/20 08:00 Pulse 71 11/06/20 10:00 Resp 18 11/06/20 10:00 BP 141/88 11/06/20 10:00 Pulse Ox 96 11/06/20 10:00 Intake & Output 11/05/20 11/06/20 11/06/20 18:59 06:59 18:59 Intake Total 1184 1432 200 Output Total 900 452 500 Balance 284 980 -300 Weight 98.2 kg Intake: IV 1184 1432 200 0.9 NaCl- 900 1432 200 PRBC's 284 Output: Urine 900 450 500 Stool 2 Other: Voiding Method Urinal Urinal Urinal # Voids 3 1 # Bowel Movements 2 1 - Exam Physical Exam revealed a 45-year-old white male in no distress, extremely pleasant. Head: Atraumatic normocephalic. HEENT:[Neck is supple.] [No neck masses.] [No thyromegaly.] [No JVD.] Chest: [Clear throughout, no crackles, no rhonchi, no wheezes.] Cardiac Exam: [Normal S1 and S2, no S3 gallop, no murmur.] Abdomen: [Soft, nontender, no megaly, no rebound, no guarding, normal bowel sounds.] Extremities: [No clubbing, no edema, no cyanosis.] Neurological Exam: [No focal neurologic deficit.] Alert and oriented 3. Psychiatric: Normal mood affect and normal mental status examination. Skin: No rashes. - Labs CBC & Chem 7: 11/06/20 03:55 11/06/20 03:55 Labs: Abnormal Lab Results - Last 24 Hours (Table) 11/05/20 11/05/20 11/06/20 Range/Units 15:52 21:01 03:55 RBC 3.36 L 3.34 L 3.14 L (4.30-5.90) m/uL Hgb 11.4 L 11.2 L 10.4 L (13.0-17.5) gm/dL Hct 31.0 L 31.2 L 29.1 L (39.0-53.0) % Sodium (137-145) mmol/L BUN (9-20) mg/dL 11/06/20 Range/Units 03:55 RBC (4.30-5.90) m/uL Hgb (13.0-17.5) gm/dL Hct (39.0-53.0) % Sodium 135 L (137-145) mmol/L BUN 7 L (9-20) mg/dL Assessment and Plan Assessment: Impression: Acute GI bleeding most likely upper GI source considering the patient had previous Divya-en-Y gastric bypass surgery in [facility]. History of bariatric surgery/Divya-en-Y gastric bypass surgery. Recommendation: Continue Protonix. Continue IV fluids. Continue to monitor hemoglobin. And monitor for any signs of bleeding. Keep nothing by mouth for now. EGD and colonoscopy scheduled to be done today. We'll continue to follow. Based on the endoscopy findings, we'll decide whether the patient stays in the ICU or transfer to a regular medical floor today Time with Patient: Less than 30
[2020-11-06] MEDS: PANTOPRAZOLE 40 MG/10 ML VIAL IV SCH ×2 (10:46→21:02)
[2020-11-06] MEDS ORDERED: MIDAZOLAM 2 MG/2 ML VIAL ONE (11:57)
[2020-11-06] MEDS ORDERED: LIDOCAINE 1% INJ 10MG/ML (20 ML MDV) ONE (11:57)
[2020-11-06] MEDS ORDERED: PROPOFOL 10 MG/ML 20 ML VIAL IV ONE (11:57)
[2020-11-06] MEDS ORDERED: IV FLUID CONTINUATION 1,000 ML IV ONE ×2 (12:19)
--- NOTE | 2020-11-06 12:49 | P.PCN ---
Date of Procedure: 11/06/20 Procedure(s) Performed: Brief history: Patient is a pleasant 45-year-old white male admitted hospital with acute GI bleed. He presented with 1 episode of black stools followed by multiple episodes of bright blood per rectum. His hemoglobin from 14-10 g/dL severe transfusion. He is scheduled scheduled for an upper endoscopy as well as colonoscopy as a part of evaluation of acute GI bleed. History of gastric bypass surgery 4 years ago. Procedure performed: Esophagogastroduodenoscopy Colonoscopy Preoperative diagnosis: Acute GI bleed Anesthesia: [facility] [place] Procedure: After informed consent was obtained from the patient was brought into the endoscopy unit and IV sedation was administered by anesthesia under continuous monitoring. Initially upper endoscopy was done. The Olympus GF 160 video endoscope was inserted inserted into the mouth and esophagus intubated without any difficulty and was gradually advanced into the gastric pouch that appeared normal. The Divya-en-Y anastomosis appeared normal. Scope was advanced through 60 cm into the proximal jejunum that appeared normal. No active bleeding noted. The scope was withdrawn to the gastric was at appeared normal.. The GE junction was located at 40 cm to the incisors. It appeared regular with no erythema erosions or ulcerations. Rest of the esophagus appeared normal. Patient tolerated the procedure well. At this time the patient continued to remain sedation. Initial digital rectal examination was normal. Olympus CF 160 video colonoscope was then inserted into the rectum and gradually advanced to the cecum without any difficulty. Careful examination was performed as the scope was gradually being withdrawn. The prep was excellent. The cecum, ascending colon, transverse colon, descending colon, sigmoid colon and rectum appeared normal. Retroflexion was performed in the rectum and no lesions were noted. Patient tolerated the procedure well. Impression: 1. Upper endoscopy revealed evidence of normal gastric pouch with Divya-en-Y gastric bypass surgery. No active bleeding noted. No evidence of anastomotic ulcer 2. Colonoscopy was completely within normal limits with no evidence of active bleeding, colitis, colorectal neoplasia or diverticulosis Recommendations: Findings of this examination were discussed with the patient as well as his family. He will be scheduled for a small bowel capsule endoscopy to evaluate further.
[2020-11-06] MEDS ORDERED: SIMETHICONE 40 MG/0.6 ML DROPS 2,000 MG/30 ML BOTTLE PO ONE (13:24)
--- NOTE | 2020-11-06 14:57 | P.PN ---
Subjective Progress Note Date: 11/06/20 Patient is doing fairly well today. He did have an EGD and colonoscopy this morning. No evidence of further bleeding. He did not have any blood after the bowel prep yesterday. Hemoglobin remained stable. Objective - Vital Signs Vital signs: Vital Signs Temp 98.0 F 11/06/20 13:15 Pulse 64 11/06/20 14:15 Resp 17 11/06/20 14:15 BP 136/80 11/06/20 14:15 Pulse Ox 96 11/06/20 14:15 Intake & Output 11/05/20 11/06/20 11/06/20 18:59 06:59 18:59 Intake Total 1184 1432 550 Output Total 900 452 500 Balance 284 980 50 Weight 98.2 kg Intake: IV 1184 1432 550 0.9 NaCl- 900 1432 400 PRBC's 284 Output: Urine 900 450 500 Stool 2 Other: Voiding Method Urinal Urinal Urinal # Voids 3 0 # Bowel Movements 2 1 - Exam General: The patient is awake and alert, in no distress Eye: there is normal conjunctiva bilaterally. Neck: The neck is supple, there is no JVD. Cardiovascular: Normal S1-S2, no S3-S4, no murmurs. Respiratory: Lungs clear to auscultation bilaterally Gastrointestinal: Abdomen is soft, nontender Musculoskeletal: There is no pedal edema. Neurological:. Speech is normal. Skin: Skin is warm and dry - Labs CBC & Chem 7: 11/06/20 03:55 11/06/20 03:55 Labs: Abnormal Lab Results - Last 24 Hours (Table) 11/05/20 11/05/20 11/06/20 Range/Units 15:52 21:01 03:55 RBC 3.36 L 3.34 L 3.14 L (4.30-5.90) m/uL Hgb 11.4 L 11.2 L 10.4 L (13.0-17.5) gm/dL Hct 31.0 L 31.2 L 29.1 L (39.0-53.0) % Sodium (137-145) mmol/L BUN (9-20) mg/dL 11/06/20 Range/Units 03:55 RBC (4.30-5.90) m/uL Hgb (13.0-17.5) gm/dL Hct (39.0-53.0) % Sodium 135 L (137-145) mmol/L BUN 7 L (9-20) mg/dL Assessment and Plan Assessment: This is a 45-year-old male with no significant past medical history other than a Divya-en-Y bypass surgery done in [facility] in 2013 that presented to the emergency room with rectal bleed and maroon bowel movement. Patient was evaluated in the ER and currently admitted to the hospital for further management of his medical problems noted below. 1. GI bleed, excessive doses unclear. Patient underwent EGD and colonoscopy with no identifiable source. Computed tomography scan of the abdomen and pelvis showed no acute findings. Currently getting Endoscopy Test. We Will Continue to Monitor Closely. 2. Acute blood loss anemia, status post 1 unit of PRBC transfusion for hemoglobin of 10.4 as ordered by GI on presentation. Patient is hemodynamically stable. We will continue to monitor CBC closely. 3. History of Divya-en-Y bypass surgery in [facility] in 2013 4. DVT prophylaxis with SCDs Today, I reviewed his medication list and lab work results. Discontinue IV fluids. Started clear liquids and advance as directed by GI. Transfuse as ne eded for hemoglobin less than 8.
[2020-11-07 04:59] LABS: Basophils % (A) 1 %; Eosinophils # (A) 0.3 k/uL (0-0.7); Eosinophils % (A) 4 %; HCT 32.7 % (39.0-53.0); HGB 11.2 gm/dL (13.0-17.5); Lymphocytes # (A) 1.9 k/uL (1.0-4.8); Lymphocytes % (A) 28 %; MCH 31.7 pg (25.0-35.0); MCHC 34.2 g/dL (31.0-37.0); MCV 92.7 fL (80.0-100.0); Mean Platelet Volume 6.6; Monocytes # (A) 0.5 k/uL (0-1.0); Monocytes % (A) 7 %; Neutrophils # (A) 4.1 k/uL (1.3-7.7); Neutrophils % (A) 59 %; Platelet Count 239 k/uL (150-450); RBC 3.53 m/uL (4.30-5.90); RDW 12.8 % (11.5-15.5); WBC 6.9 k/uL (3.8-10.6)
[2020-11-07 06:02] LABS: African American GFR (CKD) >90 (>60 ml/min/1.73 sqM); Anion Gap 2 mmol/L; Blood Urea Nitrogen 6 mg/dL (9-20); Calcium 8.8 mg/dL (8.4-10.2); Carbon Dioxide 29 mmol/L (22-30); Chloride 106 mmol/L (98-107); Glucose 108 mg/dL (74-99); Non-African American GFR(CKD) >90 (>60 ml/min/1.73 sqM); Potassium 4.2 mmol/L (3.5-5.1); Sodium 137 mmol/L (137-145)
[2020-11-07] MEDS: PANTOPRAZOLE 40 MG/10 ML VIAL IV SCH (07:58)
[2020-11-07 08:05] VITALS: TEMP 98.4
[2020-11-07 10:08] VITALS: BP 151/94
--- NOTE | 2020-11-07 10:53 | P.DS ---
Providers Date of admission: 11/05/20 03:38 Expected date of discharge: 11/07/20 Attending physician: Loren Sargent MD Consults: 11/04/20 20:38 Consult Physician Urgent Consulting Provider: Doron Brooke Consult Reason/Comments: GI bleeding Do you want consulting provider notified?: Yes, Notify in am 11/05/20 03:39 Consult Physician Urgent Consulting Provider: Nessa Vega Consult Reason/Comments: ICU management Do you want consulting provider notified?: Already Contacted Primary care physician: [facility] Course: This is a 45-year-old male with no significant past medical history other than a Divya-en-Y bypass surgery done in [facility] in 2013 that presented to the emergency room with rectal bleed and maroon bowel movement. Patient was evalua bobby in the ER and currently admitted to the hospital for further management of his medical problems noted below. 1. GI bleed, exact etiology unclear. Resolved since admission with no evidence of further bleeding. Patient underwent EGD and colonoscopy with no identifiable source. Computed tomography scan of the abdomen and pelvis showed no acute findings. Patient underwent capsule endoscopy awaiting reading and report 2. Acute blood loss anemia, status post 1 unit of PRBC transfusion for hemoglobin of 10.4 as ordered by GI on presentation. Patient is hemodynamically stable. Hemoglobin remained stable 3. History of Divya-en-Y bypass surgery in [facility] in 2013 Patient will be discharged home in a stable condition. He will follow up with GI regarding capsule endoscopy report. He will be started on a 4 weeks treatment of Protonix 40 mg daily. Follow-up with PCP in one week for repeat CBC. Advised to return to the emergency room in case of further bleeding. Patient Condition at Discharge: Stable Plan - Discharge Summary Discharge Rx Participant: Yes New Discharge Prescriptions: New Pantoprazole Sodium [Protonix] 40 mg PO DAILY #30 tablet. Continue Cholecalciferol [Vitamin D3 (25 Mcg = 1000 Iu)] 25 mcg PO DAILY Centrum 1 tab PO DAILY Aspirin EC [Ecotrin Low Dose] 81 mg PO DAILY Discharge Medication List Aspirin EC [Ecotrin Low Dose] 81 mg PO DAILY 11/04/20 [History] Centrum 1 tab PO DAILY 11/04/20 [History] Cholecalciferol [Vitamin D3 (25 Mcg = 1000 Iu)] 25 mcg PO DAILY 11/04/20 [History] Pantoprazole Sodium [Protonix] 40 mg PO DAILY #30 tablet. 11/07/20 [Rx] Follow up Appointment(s)/Referral(s): None,Stated [REFERRING] - 1-2 days Discharge Disposition: HOME SELF-CARE
--- NOTE | 2020-11-07 11:00 | P.PN ---
Subjective Progress Note Date: 11/07/20 Principal diagnosis: Acute GI bleeding likely upper GI source. Very pleasant 45-year-old male patient was coming in for a GI bleeding. He is healthy. He has undergone a gastric Divya-en-Y bypass surgery in [place] 2013 and he was doing well since then and he has lost more than 150 pounds. The patient does not any peptic ulcer disease. No gastric ulcer. No history of any al coholism. No history of any liver disease. No intake of any nonsteroidal anti- inflammatory medications. No previous history of GI bleed. Yesterday, he started up by having a single episode of melanotic stool and following that he has had 3 bouts of hematochezia the last 2 bouts occurred in the emergency department. I was told that the amount of blood was massive and the patient was becoming pale and diaphoretic and dizzy and lightheaded. At that point, the patient was resuscitated with IV fluids and he was given also unit of packed RBC for a hemoglobin of 12.4 and his hemoglobin dropped from 14.4. coagulation profile was normal. Platelet count was normal. He was not taking any form of anticoagulants. No hematemesis. No abdominal pain. Chest x-ray was normal. CAT scan of the abdomen was normal. He is currently in the intensive care unit. He is hemodynamically stable. No significant tachycardia. He is receiving normal saline at the rate of 75 mL's an hour. He is also nothing by mouth for now to which she is not happy. Patient was reevaluated today on 11/06/2020, remains in the ICU, scheduled to undergo EGD and colonoscopy today. Hemoglobin today is 10.4, it was 11.2 yesterday. Patient received 1 unit of packed RBCs since admission. No active bleeding overnight. Patient is hemodynamically stable. And in no distress, on room air. Patient was reevaluated today on 11/07/2020, remains in the ICU, doing well, his EGD and colonoscopy were both nondiagnostic. Patient underwent capsule endoscopy, results of which are pending. In the meantime the patient is doing great, asymptomatic, no further clinical evidence of GI bleeding, and his hemoglobin is stable. Hence I recommended either discharging the patient home today or transfer out of the ICU to a regular medical floor, and gastroenterology to decide whether the patient could be discharged home today. Objective - Vital Signs Vital signs: Vital Signs Temp 98.4 F 11/07/20 08:00 Pulse 72 11/07/20 10:00 Resp 16 11/07/20 10:00 BP 151/94 11/07/20 10:00 Pulse Ox 97 11/07/20 10:00 Intake & Output 11/06/20 11/07/20 11/07/20 18:59 06:59 18:59 Intake Total 650 640 100 Output Total 1400 1900 0 Balance -750 -1260 100 Weight 86.5 kg Intake: IV 550 0 0 0.9 NaCl- 400 0 0 Oral 100 640 100 Output: Urine 1400 1900 0 Other: Voiding Method Urinal Urinal # Voids 1 0 0 - Exam Physical Exam revealed a 45-year-old white male in no distress, extremely pleasant. Head: Atraumatic normocephalic. HEENT:[Neck is supple.] [No neck masses.] [No thyromegaly.] [No JVD.] Chest: [Clear throughout, no crackles, no rhonchi, no wheezes.] Cardiac Exam: [Normal S1 and S2, no S3 gallop, no murmur.] Abdomen: [Soft, nontender, no megaly, no rebound, no guarding, normal bowel sounds.] Extremities: [No clubbing, no edema, no cyanosis.] Neurological Exam: [No focal neurologic deficit.] Alert and oriented 3. Psychiatric: Normal mood affect and normal mental status examination. Skin: No rashes. - Labs CBC & Chem 7: 11/07/20 04:22 11/07/20 04:22 Labs: Abnormal Lab Results - Last 24 Hours (Table) 11/07/20 11/07/20 Range/Units 04:22 04:22 RBC 3.53 L (4.30-5.90) m/uL Hgb 11.2 L (13.0-17.5) gm/dL Hct 32.7 L (39.0-53.0) % BUN 6 L (9-20) mg/dL Glucose 108 H (74-99) mg/dL Assessment and Plan Assessment: Impression: Acute GI bleeding exact source is unclear, awaiting results of Endoscopy. His EGD and Colonoscopy Were Both Nondiagnostic. History of bariatric surgery/Divya-en-Y gastric bypass surgery. Recommendation: Continue Protonix. Awaiting the results of the capsule endoscopy. Consider discharging the patient home if agreeable with gastroenterology and follow-up on outpatient basis with gastroenterology. Time with Patient: Less than 30
[2020-11-07 11:19] VITALS: PULSE 75; RESP 18
--- NOTE | 2020-11-07 11:54 | P.PN ---
Subjective Progress Note Date: 11/07/20 Principal diagnosis: GI bleed Is a 45-year-old male with previous history of Divya-en-Y gastric bypass who presented to the hospital for evaluation of GI bleed. He underwent his R oux-en-Y gastric bypass in 2015, he presented to the hospital after having an episode of dark melotonic stool with associated dizziness and lightheadedness. Once at the hospital he had 2 more bowel movements described as bright red blood in color. Yesterday he underwent an upper and lower endoscopy. Endoscopy revealed evidence of normal gastric pouch with Divya-en-Y gastric bypass surgery. No active bleeding noted. No evidence of anastomotic ulcer. Colonoscopy was completely within normal limits with no evidence of active bleeding, colitis, colorectal neoplasm or diverticulosis. Objective - Vital Signs Vital signs: Vital Signs Temp 98.4 F 11/07/20 08:00 Pulse 75 11/07/20 11:00 Resp 18 11/07/20 11:00 BP 151/94 11/07/20 10:00 Pulse Ox 95 11/07/20 11:00 Intake & Output 11/06/20 11/07/20 11/07/20 18:59 06:59 18:59 Intake Total 650 640 100 Output Total 1400 1900 0 Balance -750 -1260 100 Weight 86.5 kg Intake: IV 550 0 0 0.9 NaCl- 400 0 0 Oral 100 640 100 Output: Urine 1400 1900 0 Other: Voiding Method Urinal Urinal # Voids 1 0 0 - Exam General appearance: The patient is alert, oriented, appears in no acute distress. HET: Head is normocephalic and atraumatic. Conjunctiva pink. Sclera anicteric. Neck: Supple without lymphadenopathy. Abdomen: Soft, nontender, nondistended with bowel sounds. No guarding or rigidity. Extremities: Normal skin color and turgor. No pedal edema Skin: No rashes, no jaundice Neurological: No focal deficits. Alert and oriented 3. - Labs CBC & Chem 7: 11/07/20 04:22 11/07/20 04:22 Labs: Abnormal Lab Results - Last 24 Hours (Table) 11/07/20 11/07/20 Range/Units 04:22 04:22 RBC 3.53 L (4.30-5.90) m/uL Hgb 11.2 L (13.0-17.5) gm/dL Hct 32.7 L (39.0-53.0) % BUN 6 L (9-20) mg/dL Glucose 108 H (74-99) mg/dL Assessment and Plan (1) GI bleed Narrative/Plan: Is a 45-year-old male with prior medical history significant for Divya-en-Y gastric bypass in 2016 who presented for melanotic stool. Had 2 further bowel movements while in the emergency room Are described as bright red. CT of the abdomen essentially negative. No prior history of peptic ulcer disease, no p rior EGD or colonoscopy. Patient denies any abdominal pain at this time. Unclear etiology, patient does have an elevation in BUN of 27 may be related to upper GI bleed with differential including peptic ulcer disease, gastritis, esophagitis, however given the descriptiontion of bright red blood in the the mergency department cannot rule out GI bleed Current Visit: Yes Status: Acute Code(s): K92.2 - GASTROINTESTINAL HEMORRHAGE, UNSPECIFIED SNOMED Code(s): 74550585 (2) Anemia associated with acute blood loss Current Visit: Yes Status: Acute Code(s): D62 - ACUTE POSTHEMORRHAGIC ANEMIA SNOMED Code(s): 095384152 (3) Melena Current Visit: Yes Status: Acute Code(s): K92.1 - MELENA SNOMED Code(s): 1283988 Plan: 1. Supportive care 2. Regular diet 3. Repeat CBC 4. Small bowel video capsule endoscopy completed, results pending 5. Patient is status post upper and lower endoscopy without any evidence of ac tive bleeding or old blood noted 6. Continue Protonix 40 mg twice a day 7. If small bowel video capsule endoscopy negative patient may be discharged home from a gastroenterology standpoint with follow-up as needed Thank you for this consultation Dr. Dereje Borjas I agree with the dictator's note, documented as a scribe by Marissa Toussaint.
== END 2020-11-07 12:35 | disposition home or self-care (01) | DRG 378 ==
LOC: EC 18:40 → 6NMEDSUR 20:39 → OBSVTOIN 11-05 03:38 → 2SICU 11-05 03:42 → 4SSUR 11-07 11:36
PROVIDERS: ADMIT Internal Medicine; ATTEND Internal Medicine
PROC: 30233N1 Transfusion of Nonautologous Red Blood Cells into Peripheral Vein, Percutaneous Approach (ICD-10-PCS; 2020-11-05)
PROC: 0DJ08ZZ Inspection of Upper Intestinal Tract, Via Natural or Artificial Opening Endoscopic (ICD-10-PCS; principal; 2020-11-06 08:05)
PROC: 0DJ07ZZ Inspection of Upper Intestinal Tract, Via Natural or Artificial Opening (ICD-10-PCS; principal; 2020-11-06 08:05)
PROC: 0DJD8ZZ Inspection of Lower Intestinal Tract, Via Natural or Artificial Opening Endoscopic (ICD-10-PCS; principal; 2020-11-06 08:05)
DX: K92.1 Melena (principal); D62 Acute posthemorrhagic anemia; Z20.822 Contact with and (suspected) exposure to COVID-19; R94.4 Abnormal results of kidney function studies; M19.90 Unspecified osteoarthritis, unspecified site; Z79.82 Long term (current) use of aspirin; Z79.899 Other long term (current) drug therapy; Z87.891 Personal history of nicotine dependence; Z98.84 Bariatric surgery status; Z87.09 Personal history of other diseases of the respiratory system; Z87.39 Personal history of other diseases of the musculoskeletal system and connective tissue; Z98.890 Other specified postprocedural states; Z82.49 Family history of ischemic heart disease and other diseases of the circulatory system; Z83.49 Family history of other endocrine, nutritional and metabolic diseases
CPT/HCPCS: 36415; 43235; 45378; 71045; 74177; 80048; 80053; 81003; 85025; 85027; 85610; 85730; 86850; 86900; 86901; 86920; 87635; 91110; 96361; 96374; 96375; 96376; 99285

== ENCOUNTER → 2021-01-10 | Outpatient (CLI) | payer MEDICAID ==
[2021-01-10 15:19] LABS: Basophils # (A) 0.05 X 10*3/uL (0.00-0.10); Basophils % (A) 0.9 %; Eosinophils # (A) 0.12 X 10*3/uL (0.04-0.35); Eosinophils % (A) 2.1 %; HCT 40.2 % (39.6-50.0); HGB 12.3 g/dL (13.0-17.0); Lymphocytes # (A) 1.46 X 10*3/uL (0.90-5.00); Lymphocytes % (A) 25.6 %; MCH 27.5 pg (27.0-32.0); MCHC 30.6 g/dL (32.0-37.0); MCV 89.9 fL (80.0-97.0); Mean Platelet Volume 9.7 fL (9.5-12.2); Monocytes # (A) 0.59 X 10*3/uL (0.20-1.00); Monocytes % (A) 10.4 %; Neutrophils # (A) 3.46 X 10*3/uL (1.80-7.70); Neutrophils % (A) 60.6 %; Platelet Count 236 X 10*3/uL (140-440); RBC 4.47 X 10*6/uL (4.40-5.60)
[2021-01-10 17:20] LABS: Hemoglobin A1C 4.7 % (4.0-6.0)
[2021-01-11 00:18] LABS: African American GFR (CKD) 117.5 (60.0-200.0); Albumin 4.1 g/dL (3.80-4.90); Albumin/Globulin Ratio 2.16 (1.60-3.17); Anion Gap 6.7 mmol/L (4.00-12.00); Carbon Dioxide 25.3 mmol/L (21.6-31.8); Globulin 1.9 g/dL (1.6-3.3); Non-African American GFR(CKD) 101.4 (60.0-200.0); Potassium 5.2 mmol/L (3.5-5.5); Total Bilirubin 0.6 mg/dL (0.2-1.2)
[2021-01-11 00:19] LABS: Bilirubin, Conjugated 0.2 mg/dL (0.20-0.40); Bilirubin,Unconjugated 0.4 mg/dL; Chol/HDL Ratio 3.91; LDL Cholesterol,Calculated 148.6 mg/dL (0.0-131.0); VLDL Calculation 11.4 mg/dL (5.00-40.00)
[2021-01-11 00:26] LABS: T4, Free (Free Thyroxine) 0.9 ng/dL (0.80-1.80)
== END | disposition home or self-care (01) ==
LOC: LABWHC1 09:08
PROVIDERS: ATTEND Internal Medicine Critical Care Medicine
DX: Z00.00 Encounter for general adult medical examination without abnormal findings (principal); E55.9 Vitamin D deficiency, unspecified; K92.2 Gastrointestinal hemorrhage, unspecified
CPT/HCPCS: 36415; 80053; 80061; 82248; 82306; 83036; 84439; 84443; 85025

== ENCOUNTER 2021-01-21 13:10 | Emergency (ER) | payer MEDICAID ==
[2021-01-21 13:30] VITALS: BP 129/88; PULSE 62; RESP 18; TEMP 98
[2021-01-21] MEDS ORDERED: DIPH,PERTUS(ACELL)TETVAC-LF 0.5 ML VIAL IM ONE (13:56)
[2021-01-21] MEDS ORDERED: MORPHINE SULFATE 4 MG/ML SYRINGE IM STA (13:56)
[2021-01-21] MEDS ORDERED: LIDOCAINE 1% INJ 10MG/ML (20 ML MDV) SQ ONE (13:57)
--- NOTE | 2021-01-21 14:26 | XR ---
EXAMINATION TYPE: XR hand complete LT DATE OF EXAM: 01/21/2021 COMPARISON: NONE HISTORY: Foreign body TECHNIQUE: 4 views FINDINGS: There is a screw and a cleat projected over the fingers. The tip of the screw could be in the soft tissues of the proximal phalanx of the index finger. I see no fracture. Joint spaces are normal. IMPRESSION: Metallic foreign body.
[2021-01-21] MEDS ORDERED: CEPHALEXIN 500MG STARTER PACK 4 CAP BTL PO STA (15:27)
--- NOTE | 2021-01-21 15:29 | ED ---
General Adult HPI - General Chief complaint: Skin/Abscess/Foreign Body Stated complaint: L hand injury Time Seen by Provider: 01/21/21 13:43 Source: patient, RN notes reviewed Mode of arrival: ambulatory Limitations: no limitations - History of Present Illness Initial comments: 45-year-old male presents to the emergency room for chief when a foreign body in the left second digit. Patient reports he was trying to screw a screw into his deck with a cleat and he externally screw through his finger. Patient reports he could not get it out. He is not up-to-date on tetanus. He does not have any other complaints. Patient has no other complaints at this time including shortness of breath, chest pain, abdominal pain, nausea or vomiting, headache, or visual changes. - Related Data Home Medications Medication Instructions Recorded Confirmed Aspirin EC [Ecotrin Low Dose] 81 mg PO DAILY 11/04/20 11/04/20 Centrum 1 tab PO DAILY 11/04/20 11/04/20 Cholecalciferol [Vitamin D3 (25 25 mcg PO DAILY 11/04/20 11/04/20 Mcg = 1000 Iu)] Previous Rx's Medication Instructions Recorded Pantoprazole Sodium [Protonix] 40 mg PO DAILY #30 tablet. 11/07/20 Cephalexin [Keflex] 500 mg PO Q6HR 7 Days #28 cap 01/21/21 Allergies Allergy/AdvReac Type Severity Reaction Status Date / Time No Known Allergies Allergy Verified 01/21/21 13:30 Review of Systems ROS Statement: Those systems with pertinent positive or pertinent negative responses have been documented in the HPI. ROS Other: All systems not noted in ROS Statement are negative. Past Medical History Past Medical History: Osteoarthritis (OA) Additional Past Medical History / Comment(s): collapsed (L) lung History of Any Multi-Drug Resistant Organisms: None Reported Past Surgical History: Orthopedic Surgery Additional Past Surgical History / Comment(s): Bilateral Knee arthroscopies x3. Lasix eye surgery (2013), Divya-en-Y gastric bypass 06/25/2016 Past Anesthesia/Blood Transfusion Reactions: No Reported Reaction Past Psychological History: No Psychological Hx Reported Smoking Status: Former smoker Past Alcohol Use History: Occasional Past Drug Use History: Marijuana - Past Family History Mother Family Medical History: Hypertension, Thyroid Disorder Father Family Medical History: Myocardial Infarction (IA) Additional Family Medical History / Comment(s): CABG x 4 General Exam Limitations: no limitations General appearance: alert, in no apparent distress Head exam: Present: atraumatic, normocephalic, normal inspection Eye exam: Present: normal appearance ENT exam: Present: normal exam, mucous membranes moist Neck exam: Present: normal inspection, full ROM. Absent: tenderness Respiratory exam: Present: normal lung sounds bilaterally. Absent: respiratory distress, wheezes Cardiovascular Exam: Present: regular rate, normal rhythm, normal heart sounds Extremities exam: Present: other (She has a screw through the palmar aspect of the lateral radial left second digit. It is not through and through. ) Course Vital Signs 01/21/21 13:25 Temperature 98 F Pulse Rate 62 Respiratory 18 Rate Blood Pressure 129/88 O2 Sat by Pulse 100 Oximetry - Reevaluation(s) Reevaluation #1: 01/21/21 14:40 Dr Tam also examined patient. Medical Decision Making - Medical Decision Making X-ray of the left hand shows a screw incomplete projected over the fingers. The tip of the screw could be in the soft tissue of the proximal thigh to the index finger. This is clinically correlated. I did perform an digital block with some local numbing. I was able to reverse the screw out without difficulty. Neurovascular status intact after screw removed. Patient has full flexion of the left second digit. I do not suspect tendon injury. Patient will be put on antibiotics. Tetanus updated. He will follow up with his primary care doctor and he actually has an appointment tomorrow. Disposition Clinical Impression: Foreign body (FB) in soft tissue Disposition: HOME SELF-CARE Condition: Good Instructions (If sedation given, give patient instructions): Soft Tissue Foreign Body (ED), Puncture Wound (ED) Additional Instructions: Please take antibiotic as directed. Keep wound clean with gentle soap and water. You can apply antibiotic ointment as well. Take Motrin and Tylenol for pain and ice the hand. Monitor for signs of infection such as spreading or streaking redness, drainage, or fever and return if these occur. Please follow- up with your doctor in one to 2 days. Return if you have any worsening symptoms. Prescriptions: Cephalexin [Keflex] 500 mg PO Q6HR 7 Days #28 cap Is patient prescribed a controlled substance at d/c from ED?: No Referrals: Santana Woodall DO [Primary Care Provider] - 1-2 days Time of Disposition: 15:27
== END 2021-01-21 15:48 | disposition home or self-care (01) ==
LOC: EC 13:10
DX: S60.451A Superficial foreign body of left index finger, initial encounter (principal); M19.90 Unspecified osteoarthritis, unspecified site; F12.90 Cannabis use, unspecified, uncomplicated; Z23 Encounter for immunization; Z87.891 Personal history of nicotine dependence; Z79.82 Long term (current) use of aspirin; W26.8XXA Contact with other sharp object(s), not elsewhere classified, initial encounter
CPT/HCPCS: 64450; 90471; 96372; 99283; 73130; 90715; J2270; J2001

== ENCOUNTER → 2021-02-20 | Outpatient (CLI) | payer MEDICAID ==
[2021-02-20 18:45] LABS: Basophils # (A) 0.06 X 10*3/uL (0.00-0.10); Basophils % (A) 1.1 %; Eosinophils # (A) 0.13 X 10*3/uL (0.04-0.35); Eosinophils % (A) 2.4 %; Lymphocytes # (A) 1.93 X 10*3/uL (0.90-5.00); Lymphocytes % (A) 35.5 %; MCH 26.2 pg (27.0-32.0); MCV 84.7 fL (80.0-97.0); Monocytes # (A) 0.65 X 10*3/uL (0.20-1.00); Neutrophils # (A) 2.65 X 10*3/uL (1.80-7.70); Neutrophils % (A) 48.8 %; Platelet Count 220 X 10*3/uL (140-440); RBC 4.96 X 10*6/uL (4.40-5.60); RDW 13.6 % (11.5-14.5); WBC 5.43 X 10*3/uL (4.50-10.00)
== END | disposition home or self-care (01) ==
LOC: LABWHC1 11:56
PROVIDERS: ATTEND Internal Medicine Critical Care Medicine
DX: D64.9 Anemia, unspecified (principal); K92.2 Gastrointestinal hemorrhage, unspecified
CPT/HCPCS: 36415; 85025

== ENCOUNTER → 2021-07-12 | Outpatient (CLI) | payer MEDICAID ==
[2021-07-12 10:22] LABS: Basophils % (A) 1 %; Eosinophils # (A) 0.2 k/uL (0-0.7); Eosinophils % (A) 3 %; HCT 46.8 % (39.0-53.0); HGB 16.2 gm/dL (13.0-17.5); Lymphocytes # (A) 1.4 k/uL (1.0-4.8); Lymphocytes % (A) 24 %; MCHC 34.6 g/dL (31.0-37.0); MCV 89.6 fL (80.0-100.0); Mean Platelet Volume 7.3; Monocytes # (A) 0.6 k/uL (0-1.0); Monocytes % (A) 9 %; Neutrophils # (A) 3.6 k/uL (1.3-7.7); Neutrophils % (A) 61 %; Platelet Count 219 k/uL (150-450); RBC 5.22 m/uL (4.30-5.90); RDW 12.8 % (11.5-15.5); WBC 5.9 k/uL (3.8-10.6)
== END | disposition home or self-care (01) ==
LOC: LABPAT 09:03
PROVIDERS: ATTEND Surgery
DX: Z01.812 Encounter for preprocedural laboratory examination (principal); K40.90 Unilateral inguinal hernia, without obstruction or gangrene, not specified as recurrent
CPT/HCPCS: 36415; 85025; 86850; 86900; 86901

== ENCOUNTER 2021-07-16 11:05 | Day surgery (SDC) | payer MEDICAID ==
[2021-07-12 11:47] VITALS: BMI 24.5
[~2021-07-16 11:05] MED LIST: ACETAMINOPHEN TAB 500 MG TAB PO PRN; DEXAMETHASONE SOD PHOSPHATE 4 MG/ML 1 ML VIAL IV ONE; HEPARIN SODIUM,PORCINE/PF 5,000 UNIT/0.5 ML SYRINGE SQ PRN; LACTATED RINGERS 1,000 ML IV SCH; ONDANSETRON 4 MG/2 ML VIAL IVP ONE
[2021-07-16] MEDS ORDERED: MIDAZOLAM 2 MG/2 ML VIAL IV ONE (12:24)
[2021-07-16] MEDS ORDERED: HYDROmorphone (PF) 1 MG/ML ONE (13:01)
[2021-07-16] MEDS ORDERED: PROPOFOL 10 MG/ML 20 ML VIAL IV ONE (13:01)
[2021-07-16] MEDS ORDERED: NEOSTIGMINE 1 MG/ML 10 ML VIAL ONE (13:01)
[2021-07-16] MEDS ORDERED: MIDAZOLAM 2 MG/2 ML VIAL ONE (13:01)
[2021-07-16] MEDS ORDERED: LIDOCAINE 1% INJ 10MG/ML (20 ML MDV) ONE (13:01)
[2021-07-16] MEDS ORDERED: .fentaNYL (PF) 50 MCG/ML 2 ML AMP ONE (13:01)
[2021-07-16] MEDS ORDERED: GLYCOPYRROLATE 0.2 MG/ML 2 ML VIAL ONE (13:01)
[2021-07-16] MEDS ORDERED: ROCURONIUM 10 MG/ML (5 ML VIAL) IV ONE (13:01)
[2021-07-16] MEDS ORDERED: SUCCINYLCHOLINE CHLORIDE 100 MG/5 ML SYR IV ONE (13:01)
[2021-07-16] MEDS ORDERED: KETAMINE 10 MG/ML 20 ML VIAL ONE (13:01)
[2021-07-16] MEDS ORDERED: BUPIVACAIN-EPI 0.25%-1:200,000 30 ML VIAL SQ ONE ×2 (13:23)
[2021-07-16] MEDS ORDERED: LACTATED RINGERS 1,000 ML IV ONE (14:25)
[2021-07-16] MEDS ORDERED: ACETAMINOPHEN TAB 325 MG TAB PO SCH (14:30)
--- NOTE | 2021-07-16 14:35 | P.OP ---
Date of Procedure: 07/16/21 Procedure(s) Performed: PREOPERATIVE DIAGNOSIS: Right inguinal hernia POSTOPERATIVE DIAGNOSIS: Right indirect inguinal hernia PROCEDURE: Laparoscopic da Ruby assisted repair right inguinal hernia with mesh SURGEON: Dr. Vaca ANESTHESIA: General OPERATIVE PROCEDURE DETAILS: Patient was placed in the operating table in the supine position. The patient was placed under general anesthesia. The abdomen was prepped and draped in usual sterile fashion. A small curvilinear supraumbilical incision was made. The fascia was retracted anteriorly with Joel forceps. The Veress needle was inserted. The patient's abdominal wall was extremely loose from his extensive bariatric weight loss. I was not conf ident the Veress needle was in the appropriate location. Despite that the saline drop test was normal. Insufflation was connected and the patient had high pressure immediately. At that time I aborted the Veress approach. Instead a 5 mm optical trocar was used to enter the left upper quadrant. This occurred without difficulty. Full insufflation took place to 15 mmHg. An 8 mm trocar was placed into the peritoneal cavity at the umbilicus. 2 additional 8 mm trochars were placed in the right upper quadrant and left upper quadrant under visualization. The robotic arms were then brought in and docked into place. The fenestrated bipolar was used in the left arm and the laparoscopic raji was utilized in the right arm. A 30 8 mm scope was used in the up position. The peritoneal cavity was inspected. The patient had no visible hernia on the left- hand side. There was an obvious indirect hernia seen on the right-hand side however. The peritoneum was incised in a horizontal fashion cephalad to the internal inguinal ring. Following that careful dissection of the preperitoneal space took place. This took place using both electrocautery, sharp dissection but primarily blunt dissection. Visualization of the pubic tubercle and Gagandeep's ligament took place medially. Full dissection took place laterally as well. The indirect hernia sac was fully dissected. Once we had adequate space the extra-large Bard 3-D mid mesh was advanced into the preperitoneal space and flattened out appropriately to cover all potential hernia sites. No sutures were used. The peritoneal defect was then closed using a absorbable 2-0 VLok suture. The hernia sac was incorporated into the peritoneal closure to help prevent future recurrence. The pneumoperitoneum was then evacuated. The skin of all 4 sites was closed using a 4-0 Monocryl stitch. Skin glue was then applied. TYPE OF MESH USED: Bard XL 3-D max mid mesh 5 x 7" LOCATION OF MESH: Preperitoneal FIXATION: None DISPOSITION: Stable to recovery room
[2021-07-16 14:48] VITALS: TEMP 97.6
[2021-07-16] MEDS: HYDROmorphone 0.5 MG/0.5 ML SYRINGE IVP PRN ×2 (15:00→15:20)
[2021-07-16] MEDS ORDERED: ONDANSETRON 4 MG/2 ML VIAL IVP ONE (15:40)
[2021-07-16 16:51] VITALS: RESP 14
[2021-07-16] MEDS ORDERED: IBUPROFEN 600 MG TAB PO SCH (17:30)
[2021-07-16 17:55] VITALS: BP 150/81; PULSE 71
== END 2021-07-16 22:19 | disposition home or self-care (01) ==
LOC: OR 11:05
PROVIDERS: ATTEND Surgery
DX: K40.90 Unilateral inguinal hernia, without obstruction or gangrene, not specified as recurrent (principal)
CPT/HCPCS: 49650; C1781; J2250; J1100; J2710; J0690; J2405; J2001; J3010; J1170 ×2; J0330; J2704; J1644

== ENCOUNTER 2022-01-14 12:01 | Day surgery (SDC) | payer MEDICAID ==
[2022-01-11 13:18] VITALS: BMI 24.7
[~2022-01-14 12:01] MED LIST changes: -ACETAMINOPHEN TAB 500 MG TAB PO PRN; -DEXAMETHASONE SOD PHOSPHATE 4 MG/ML 1 ML VIAL IV ONE; -HEPARIN SODIUM,PORCINE/PF 5,000 UNIT/0.5 ML SYRINGE SQ PRN; -LACTATED RINGERS 1,000 ML IV SCH; -ONDANSETRON 4 MG/2 ML VIAL IVP ONE; +SODIUM CHLORIDE 0.9% 1,000 ML IV SCH
[2022-01-14 12:18] VITALS: BP 146/95; RESP 18; TEMP 98.8
[2022-01-14] MEDS ORDERED: IV FLUID CONTINUATION 500 ML IV ONE ×2 (13:25)
[2022-01-14 14:29] VITALS: PULSE 63
--- NOTE | 2022-01-14 18:17 | P.EPPROC ---
- EP Procedure Note Electrophysiology Procedure Note: Diagnosis Recurrent syncope Twelve-lead EKG shows sinus mechanism normal TN narrow QRS normal ST segments with early repolarization abnormality Normal QT interval No delta waves, no epsilon waves, normal ST segments in the precordial leads Tilt table test for protocol Baseline blood pressure 139/88 mmHg Baseline heart rate 60 beats a minute Patient was tilted upright at an angle of 70 per protocol No significant change in heart rate and blood pressure No symptoms noted Heart rate remained in the 70s and 80s No evidence for neurocardiogenic syncope Impression Normal twelve-lead EKG with heart rate 50 beats a minute, early repolarization abnormality No evidence for neurocardiogenic syncope and tilt table testing
== END 2022-01-14 14:15 | disposition home or self-care (01) ==
LOC: CATHEP 12:01
PROVIDERS: ATTEND Internal Medicine Clinical Cardiac Electrophysiology
DX: R55 Syncope and collapse (principal); F41.9 Anxiety disorder, unspecified; F32.A Depression, unspecified; F90.9 Attention-deficit hyperactivity disorder, unspecified type; G47.00 Insomnia, unspecified; E55.9 Vitamin D deficiency, unspecified; D64.9 Anemia, unspecified; E78.5 Hyperlipidemia, unspecified; Z20.822 Contact with and (suspected) exposure to COVID-19; Z98.84 Bariatric surgery status; Z79.899 Other long term (current) drug therapy; Z87.891 Personal history of nicotine dependence; Z98.890 Other specified postprocedural states; Z87.19 Personal history of other diseases of the digestive system; Z82.49 Family history of ischemic heart disease and other diseases of the circulatory system; Z80.3 Family history of malignant neoplasm of breast; Z83.49 Family history of other endocrine, nutritional and metabolic diseases
CPT/HCPCS: 87635; 93660

== ENCOUNTER → 2022-01-18 | Outpatient (CLI) | payer MEDICAID ==
[2022-01-18 14:13] LABS: HCT 47.6 % (39.6-50.0); HGB 15.6 g/dL (13.0-17.0); MCH 30.6 pg (27.0-32.0); MCHC 32.8 g/dL (32.0-37.0); MCV 93.3 fL (80.0-97.0); Mean Platelet Volume 9.6 fL (9.5-12.2); NRBC Per 100 WBC 0 /100 WBCS (0.0-0.0); Platelet Count 228 X 10*3/uL (140-440); RDW 12.4 % (11.5-14.5)
[2022-01-18 15:01] LABS: ALT 26 U/L (10-49); AST 29 U/L (14-35); African American GFR (CKD) 102.7 (60.0-200.0); Albumin 4.5 g/dL (3.8-4.9); Albumin/Globulin Ratio 2.25 (1.60-3.17); Alkaline Phosphatase 53 U/L (41-126); Blood Urea Nitrogen 10.1 mg/dL (9.0-27.0); Calcium 9.5 mg/dL (8.7-10.3); Carbon Dioxide 27.1 mmol/L (20.0-27.5); Chloride 103 mmol/L (96-109); Chol/HDL Ratio 4.03 Ratio; Glucose 95 mg/dL (70-110); LDL Cholesterol,Calculated 176.8 mg/dL (0.0-131.0); Non-African American GFR(CKD) 88.6 (60.0-200.0); Potassium 4.7 mmol/L (3.5-5.5); Sodium 142 mmol/L (135-145); Total Protein 6.5 g/dL (6.2-8.2)
== END | disposition home or self-care (01) ==
LOC: LABWHC1 07:03
PROVIDERS: ATTEND Family Medicine
DX: F41.1 Generalized anxiety disorder (principal); R68.82 Decreased libido; Z98.84 Bariatric surgery status
CPT/HCPCS: 36415; 80053; 80061; 82607; 82746; 84403; 84443; 85027

== ENCOUNTER → 2022-04-30 | Outpatient (CLI) | payer MEDICAID ==
--- NOTE | 2022-04-30 08:21 | CT ---
EXAMINATION TYPE: CT soft tissue neck w con CT DLP: 415.60 mGycm, Automated exposure control for dose reduction was used. DATE OF EXAM: 04/30/2022 8:00 AM COMPARISON: None. CLINICAL INDICATION:Male, 47 years old with history of R22.0;lump TECHNIQUE: Standard enhanced CT of the neck following intravenous administration of 60 cc of Isovue 3 00. Axial sections with coronal and sagittal reformats were obtained. FINDINGS: Brain: Visualized portions are grossly unremarkable. Orbits: Unremarkable Sinuses: Moderate mucosal thickening of the right sphenoid sinus. The mastoid air cells are clear. Spaces of the neck: Heterogenous mixed cystic/solid appearing lesion within the left parotid gland me asuring 3.1 x 2.4 x 3.2 cm. Musculoskeletal: No acute osseous pathology. No aggressive osseous lesions. Lymph nodes: No pathologically enlarged cervical lymphadenopathy. Vascular structures: Bilateral atherosclerotic calcification of the bilateral carotid sinuses without significant stenosis. Thoracic Inlet/airway: Airway is patent. The lung apices are clear. Soft tissues/Thyroid: Thyroid and remainder of the soft tissues are unremarkable. Other: none. IMPRESSION Heterogenous 3.2 cm mixed cystic and solid lesion within the left parotid gland. Further evaluation w ith ultrasound is recommended.
== END | disposition home or self-care (01) ==
LOC: RADCTMAIN 07:37
PROVIDERS: ATTEND Family Medicine
DX: K11.8 Other diseases of salivary glands (principal)
CPT/HCPCS: 70491; Q9967